=== PATIENT | female | born 1975 | race Caucasian/White ===

== ENCOUNTER 2020-01-14 12:23 | Outpatient (REF) | payer OTHER, SELFPAY ==
[2020-01-14 14:45] LABS: Amphetamine Screen Urine Not Detected (Not Detect); Barbiturates, Urine Not Detected (Not Detect); Benzodiazepines Screen Urine Not Detected (Not Detect); Cannabinoid Screen Urine Not Detected (Not Detect); Cocaine Screen Urine Not Detected (Not Detect); Opiate Screen Urine Not Detected (Not Detect); Phencyclidine Screen Urine Not Detected (Not Detect)
== END 2020-01-14 12:24 | disposition home or self-care (01) ==
LOC: HO.WFDLDS 12:23
PROVIDERS: Visit Provider Family Medicine
DX: S72.91XG Unspecified fracture of right femur, subsequent encounter for closed fracture with delayed healing (principal); X58.XXXD Exposure to other specified factors, subsequent encounter
CPT/HCPCS: 80307; 80365; G0480

== ENCOUNTER 2020-03-08 16:07 | Outpatient (REF) | payer OTHER, SELFPAY ==
--- NOTE | 2020-03-08 16:17 | CT_ITS ---
EXAMINATION: CT PELVIS WITHOUT CONTRAST CLINICAL INFORMATION: Pain right hip. COMPARISON: Right hip x-ray 12/18/2019 TECHNIQUE: Helical scanning was performed with submillimeter collimation through the pelvis. Sagittal and coronal multiplanar 2-D reconstructions were obtained. This CT examination was performed using dose optimization techniques as appropriate, variously including the following: *Automated exposure control *Adjustment of mA and/or kV according to patient size (this includes techniques or standardized protocols for targeted exams where dose is matched to indication/reason for exam; i.e. extremities or head) *Use of iterative reconstruction technique DLP: 646 mGy-cm FINDINGS: PELVIS: There is scattered stool in the colon without significant distention. The small bowel loops unremarkable. The bladder is nondistended. Uterus is anteverted and unremarkable. There is no free fluid in cul-de-sac. No abnormal pelvic or inguinal lymph nodes. OSSEOUS STRUCTURES: There is an old posterior acetabular fracture stabilized with chain link plate and screws with hypertrophic bone changes seen adjacent to the posterior acetabulum and lateral to the right hip joint. There is irregular lucency traversing along the right superior femoral head suspicious of fracture or avascular necrosis. There is irregular contour involving the right ethmoidal articulating head surface. The left hip joint and the rest of the pelvis is unremarkable. SI joints are symmetrical and normal. CT/CT pelvis wo con IMPRESSION: 1. 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 There is mild deformity of the right femoral head with irregular articulating surface and loss of right hip joint space. 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 Recommend MRI correlation. 2. Normal left hip joint and rest the pelvis. 3. Stabilized posterior acetabular fracture with metallic plate and screws. The fracture line is still visualized with hypertrophic bony changes surrounding the right hip and the posterior acetabulum.
== END 2020-03-08 16:08 | disposition home or self-care (01) ==
LOC: HO.CT 16:07
PROVIDERS: Visit Provider Orthopaedic Surgery
DX: M25.551 Pain in right hip (principal)
CPT/HCPCS: 72192

== ENCOUNTER 2020-08-26 11:29 | Outpatient (REF) | payer OTHER, SELFPAY ==
[2020-08-26 15:08] LABS: Amphetamine Screen Urine Not Detected (Not Detect); Barbiturates, Urine Not Detected (Not Detect); Benzodiazepines Screen Urine Not Detected (Not Detect); Cannabinoid Screen Urine Not Detected (Not Detect); Cocaine Screen Urine Not Detected (Not Detect); Opiate Screen Urine Not Detected (Not Detect); Phencyclidine Screen Urine Not Detected (Not Detect)
[2020-09-03 12:05] LABS: Hydrocodone, Ur NEGATIVE; Hydromorphone, Ur NEGATIVE; Morphine, Ur NEGATIVE; Norhydrocodone, Ur NEGATIVE; Noroxycodone, Ur NEGATIVE; Oxycodone, Ur NEGATIVE; Oxymorphone, Ur NEGATIVE
[2020-09-03 12:06] LABS: Codeine, Ur NEGATIVE
== END 2020-08-26 11:30 | disposition home or self-care (01) ==
LOC: HO.WFDLDS 11:29
PROVIDERS: PCP Family Medicine; Visit Provider Family Medicine
DX: F10.10 Alcohol abuse, uncomplicated (principal)
CPT/HCPCS: 80307; 80364; 80365

== ENCOUNTER 2020-08-30 16:01 | Outpatient (REF) | payer OTHER, SELFPAY ==
[2020-08-30 18:27] LABS: Ethanol < 10 mg/dL
== END 2020-08-30 16:02 | disposition home or self-care (01) ==
LOC: HO.LAB 16:01
PROVIDERS: PCP Family Medicine; Visit Provider Family Medicine
DX: F10.10 Alcohol abuse, uncomplicated (principal)
CPT/HCPCS: 36415; 80320

== ENCOUNTER 2021-01-26 12:02 | Outpatient (REF) | payer OTHER, SELFPAY ==
[2021-01-26 13:57] LABS: Appearance Urine HAZY; Color Urine YELLOW; Glucose Urine UA NEG (NEG); Leukocyte Esterase Urine NEG (NEG); Nitrite Urine NEG (NEG); Urine Blood NEG (NEG); Urine Ketones 5 MG/DL (NEG); Urine Protein TRACE MG/DL (NEG-TRACE)
[2021-01-26 14:24] LABS: Alanine Aminotransferase 21 U/L (0-31); Albumin Level 4.4 g/dL (3.5-5.0); Alkaline Phosphatase 68 U/L (39-117); Anion Gap 13 (12-20); Aspartate Amino Transferase 15 U/L (5-31); Bilirubin Total 0.6 mg/dL (0.0-1.0); Blood Urea Nitrogen 16 mg/dL (9-16); Calcium 9.2 mg/dL (8.4-10.2); Carbon Dioxide 26 mmol/L (22-29); Chloride 104 mmol/L (96-108); Cholesterol 182 mg/dL; Estimated Glomerular Filt Rate > 60; Glucose Fasting 89 mg/dL (60-99); HDL Cholesterol 56 mg/dL; LDL Cholesterol Calculated 114 mg/dl; Potassium 4.8 mmol/L (3.3-5.1); Sodium 138 mmol/L (135-145); Total Protein 6.7 g/dL (6.5-8.0); Triglycerides 60 mg/dL
[2021-01-26 14:46] LABS: TSH reflex Free T4 1.89 uIU/mL (0.32-4.0)
[2021-01-28 03:10] LABS: Follicle Stimulating Hormone 6.4 mIU/mL; Lutenizing Hormone 11.2 mIU/mL
== END 2021-01-26 12:03 | disposition home or self-care (01) ==
LOC: HO.WFDLDS 12:02
PROVIDERS: Visit Provider Family Medicine
DX: Z00.00 Encounter for general adult medical examination without abnormal findings (principal); N95.1 Menopausal and female climacteric states
CPT/HCPCS: 36415; 80053; 80061; 81003; 83001; 83002; 84443

== ENCOUNTER 2021-02-25 11:31 | Outpatient (REF) | payer OTHER, SELFPAY ==
[2021-02-27 14:51] LABS: BV Int Neg Control Negative (Negative); BV Int Pos Control Positive (Positive)
[2021-02-27 17:42] LABS: CT PCR NOT DETECTED (Not Detect.); NG PCR NOT DETECTED (Not Detect.)
[2021-03-01 21:50] LABS: HPV mRNA E6/E7 rflx Not Detected (Not Detected)
== END 2021-02-25 11:32 | disposition home or self-care (01) ==
LOC: HO.LAB 11:31
PROVIDERS: PCP Family Medicine; Visit Provider Advanced Practice Midwife
DX: Z01.411 Encounter for gynecological examination (general) (routine) with abnormal findings (principal); Z11.51 Encounter for screening for human papillomavirus (HPV); N89.8 Other specified noninflammatory disorders of vagina; Z20.2 Contact with and (suspected) exposure to infections with a predominantly sexual mode of transmission
CPT/HCPCS: 87480; 87491; 87510; 87591; 87624; 87660; 88142; 99212